=== PATIENT | female | born 1980 ===

== ENCOUNTER 2017-01-08 16:51 | Emergency (ER) | payer SELFPAY ==
[2017-01-08 17:21] VITALS: BMI 28.7
--- NOTE | 2017-01-08 17:57 | RAD ---
PROCEDURE: CHEST RADIOGRAPH, 1 VIEW HISTORY: Chest pain COMPARISON: Upper FINDINGS: LUNGS: The lungs are well inflated and clear. PLEURA: No pneumothorax or pleural fluid seen. CARDIOVASCULAR: Normal. OSSEOUS STRUCTURES: No significant abnormalities. VISUALIZED UPPER ABDOMEN: Normal. OTHER FINDINGS: None. IMPRESSION: No active pulmonary disease.
[2017-01-08 18:22] LABS: BASO % 0.4 % (0.0-2.0); EOS # 0.3 K/uL (0.0-0.7); EOS % 3.5 % (0.0-4.0); HEMATOCRIT 38.2 % (34.0-47.0); LYMPH % 35.6 % (20.0-40.0); MEAN CELL VOLUME 87.1 fL (81.0-99.0); MEAN CORPUSCULAR HEMOGLOBIN 28.9 pg (27.0-31.0); MEAN CORPUSCULAR HGB CONC 33.2 g/dL (33.0-37.0); MEAN PLATELET VOLUME 10.6 fL (7.2-11.7); MONO # 0.7 K/uL (0.0-0.8); MONO % 8.5 % (0.0-10.0); RED CELL DISTRIBUTION WIDTH 14.4 % (11.5-14.5); WHITE BLOOD COUNT 8.4 K/uL (4.8-10.8)
--- NOTE | 2017-01-08 18:23 | C.PDOC ---
History Of Present Illness 36 y/o F c/o substernal chest pressure that began today, described as constant and burning. Pain is associated with nausea and mild SOB, worsens with laying flat. Patient denies cough, fever, vomiting, diarrhea, palpitations. She denies any PMhx, and has no h/o blood clots or cardiac problems (herself or family). Patient also denies being on OCPs, recent surgery/immobilizations. Time Seen by Provider: 01/08/17 17:31 Chief Complaint (Nursing): Chest Pain History Per: Patient History/Exam Limitations: no limitations Onset/Duration Of Symptoms: Hrs Current Symptoms Are (Timing): Still Present Severity: Mild Quality: Burning, Pressure Additional History Per: Patient Past Medical History Reviewed: Historical Data, Nursing Documentation, Vital Signs Vital Signs: Last Vital Signs Temp 97.9 F 01/08/17 18:37 Pulse 55 L 01/08/17 20:07 Resp 12 01/08/17 20:07 BP 103/60 01/08/17 20:07 Pulse Ox 100 01/08/17 20:07 - Medical History PMH: No Chronic Diseases Surgical History: Cholecystectomy Family History: States: No Known Family Hx - Social History Hx Alcohol Use: Yes Hx Substance Use: No - Immunization History Hx Tetanus Toxoid Vaccination: No Hx Influenza Vaccination: No Hx Pneumococcal Vaccination: No Review Of Systems Except As Marked, All Systems Reviewed And Found Negative. Constitutional: Negative for: Fever, Chills Cardiovascular: Positive for: Chest Pain. Negative for: Palpitations Respiratory: Positive for: Shortness of Breath (Mild). Negative for: Cough Gastrointestinal: Positive for: Nausea. Negative for: Vomiting, Abdominal Pain , Diarrhea Skin: Negative for: Rash Physical Exam - Physical Exam Appears: Well, Non-toxic, In Acute Distress (in mild pain ) Skin: Warm, Dry, No Rash Head: Normacephalic Oral Mucosa: Moist Neck: Normal Cardiovascular: Rhythm Regular Respiratory: Normal Breath Sounds, No Rales, No Rhonchi, No Wheezing Gastrointestinal/Abdominal: Normal Exam, Bowel Sounds, Soft, No Tenderness Back: No CVA Tenderness Extremity: Normal ROM, No Pedal Edema, No Calf Tenderness, No Deformity, No Swelling Extremity: Bilateral: Normal Color And Temperature Neurological/Psych: Oriented x3 ED Course And Treatment - Laboratory Results Result Diagrams: 01/08/17 18:15 01/08/17 18:15 ECG: Interpreted By Me, Viewed By Me (NSR 62 bpm, normal axis, no acute ST/T wave changes) ECG Interpretation: Normal Rate From EC O2 Sat by Pulse Oximetry: 97 (RA) Pulse Ox Interpretation: Normal - Radiology CXR: Interpreted by Me, Viewed By Me CXR Interpretation: Yes: No Acute Disease. No: Infiltrates Progress Note: Blood work, EKG, CXR ordered and reviewed. Patient given IV NS bolus, IV zofran, low dose IV morphine. Reevaluation Time: 19:45 Reassessment Condition: Improved (Patient reassessed, is currently resting comfortably and in no acute distress/pain. Blood work, EKG, CXR ordered and reviewed. Patient's symptoms more consistent with GERD/esophageal spasm/ gastritis/GI etiology. Blood work, EKG, CXR unremarkable, and patient has no cardiac or PE/DVT risk factors. Rx for protonix given, and patient instructed to follow up with GI within 1 week. She understands she should return to ED if symptoms worsen.) Disposition Counseled Patient/Family Regarding: Diagnosis, Need For Followup, Rx Given - Disposition Referrals: [facility] [Outside] [facility] [Outside] Harsh Keyes MD [Staff Provider] - Disposition: HOME/ ROUTINE Disposition Time: 19:45 Condition: STABLE Additional Instructions: SEGUIMIENTO CON GASTROENTERLOGO DENTRO DE 1 SEMANA USE MEDICAMENTOS DIARIAMENTE DEVUELVA A LA PATEL DE EMERGENCIA SI LOS SNTOMAS EMPEORARAN Prescriptions: Pantoprazole [Protonix EC Tab] 20 mg PO DAILY #30 ect Forms: [employer] (Tajik) Print Language: SALVADOREAN - POA Present On Arrival: None - Clinical Impression Clinical Impression: Epigastric abdominal pain, Non-cardiac chest pain - Scribe Statement The provider has reviewed the documentation as recorded by the Scribe Laura mcdonald All medical record entries made by the Scribe were at my direction and personally dictated by me. I have reviewed the chart and agree that the record accurately reflects my personal performance of the history, physical exam, medical decision making, and the department course for this patient. I have also personally directed, reviewed, and agree with the discharge instructions and disposition.
[2017-01-08 18:27] LABS: CHLORIDE 104 mmol/L (98-107)
[2017-01-08 18:28] LABS: POTASSIUM 3.3 mmol/L (3.6-5.2); SODIUM 139 mmol/L (132-148)
[2017-01-08 18:30] LABS: GFR AFRICAN-AMERICAN > 60
[2017-01-08 18:31] LABS: ALB/GLOB RATIO 1.1 (1.0-2.1); ALKALINE PHOSPHATASE 78 U/L (38-126); ALT/SGPT 27 U/L (9-52); AST/SGOT 21 U/L (14-36); BILIRUBIN,TOTAL 0.5 mg/dL (0.2-1.3); BLOOD UREA NITROGEN 10 mg/dL (7-17); CARBON DIOXIDE 22 mmol/L (22-30); GLUCOSE,RANDOM 95 mg/dL (65-105); TOTAL PROTEIN 7.5 g/dL (6.3-8.3)
[2017-01-08] MEDS ORDERED: Sodium Chloride 0.9% 1,000 ML IV ONE (18:37)
[2017-01-08 18:38] VITALS: TEMP 97.9
[2017-01-08 18:38] LABS: PARTIAL THROMBOPLASTIN TIME 28 SECONDS (21-34)
[2017-01-08] MEDS ORDERED: Sodium Chloride 0.9% 1,000 ML ONE (18:40)
[2017-01-08 20:07] VITALS: BP 103/60; PULSE 55; RESP 12
--- NOTE | 2017-01-09 18:01 | CARD ---
APPROVED REPORT EKG Measurement Heart [id number] CO 130P40 [id number] <Conclusion> Normal sinus rhythm Normal ECG
[2017-01-17 09:28] VITALS: O2SAT 97
== END 2017-01-08 20:08 | disposition home or self-care (01) ==
LOC: C.ER 16:51
DX: R07.89 Other chest pain (principal); R10.13 Epigastric pain
CPT/HCPCS: 71010; 80053; 82550; 82553; 84484; 85025; 85378; 85610; 85730; 93005; 96361; 96374; 96375; 99285; J2270; J2405; J7040